=== PATIENT | female | born 1945 | race Caucasian/White ===

== ENCOUNTER 2018-05-19 06:50 | Day surgery (SDC) | payer MEDICARE, OTHER ==
[~2018-05-19 06:50] MED LIST: Lactated Ringers 1,000 ML IV SCH
[2018-05-19] MEDS ORDERED: Propofol 200 MG/20 ML SDV IV ONE (06:51)
--- NOTE | 2018-05-19 08:45 | PCM.OPNOTE ---
- General Post-Op/Procedure Note Date of Surgery/Procedure: 05/19/18 Operative Procedure(s): c scope with bx Findings: polyps: ascending, transverse, descending and rectal Pre Op Diagnosis: screening Post-Op Diagnosis: ascending, transverse, descending and rectal polyps Anesthesia Technique: MAC Primary Surgeon: Barber Wheat Anesthesia Provider: Jose M Bass Pathology: ascending, transverse, descending and rectal polyps Complications: None Condition: Good Free Text/Narrative:: see dictation
--- NOTE | 2018-05-19 14:06 | OR ---
DATE OF OPERATION: 05/19/2018 SURGEON: Barber Wheat MD PROCEDURE PERFORMED: Colonoscopy with cold forceps biopsy. PREOPERATIVE DIAGNOSIS: Screening colonoscopy. POSTOPERATIVE DIAGNOSIS: Colon polyps of the ascending, transverse, descending, and rectum. INDICATIONS FOR PROCEDURE: This is a 72-year-old white female who presents for a followup colonoscopy. She was offered and accepted same. DESCRIPTION OF OPERATION: After an excellent IV sedation was administered, digital rectal exam was performed. No marked abnormality was noted. Flexible colonoscope was inserted and advanced to the cecum without difficulty. The prep was excellent. The following findings were noted. Ascending colon polyp biopsied with the cold biopsy forceps and sent for permanent, photo taken. Transverse colon proximal area, another polyp biopsied with cold biopsy forceps and sent for permanent. Descending colon polyp biopsied with cold biopsy forceps and sent for permanent. Sigmoid unremarkable. Rectum at approximately 15 cm, a small pedunculated polyp biopsied with cold biopsy forceps and sent for permanent. The colon was deflated as the scope was removed. The patient tolerated the procedure well and was taken to Recovery in good condition. Results by letter. /[id number] /MODL
== END 2018-05-19 09:19 | disposition home or self-care (01) ==
LOC: FB.SDS 06:50
PROVIDERS: ATTEND Surgery
DX: Z12.11 Encounter for screening for malignant neoplasm of colon (principal); D12.3 Benign neoplasm of transverse colon; D12.4 Benign neoplasm of descending colon; K62.1 Rectal polyp; K63.5 Polyp of colon; I10 Essential (primary) hypertension; E03.9 Hypothyroidism, unspecified; E78.5 Hyperlipidemia, unspecified; Z79.82 Long term (current) use of aspirin; Z79.890 Hormone replacement therapy; Z79.899 Other long term (current) drug therapy; Z80.0 Family history of malignant neoplasm of digestive organs
CPT/HCPCS: 00812; 45380; 88305; J2704